=== PATIENT | female | born 1975 | race African-American/Black ===

== ENCOUNTER 2023-11-17 23:46 | Emergency (ER) | payer OTHER ==
[~2023-11-17] VITALS: Ht 175.3 cm; Wt 84.0 kg
[2023-11-18 00:15] VITALS: BP 136/95; RESP 18; TEMP 98.3; O2SAT 99
[2023-11-18 00:17] VITALS: PULSE 98
[2023-11-18 01:58] LABS: *AMPHETAMINES SCREEN URINE NEGATIVE (NEGATIVE); *BARBITURATES SCREEN URINE NEGATIVE (NEGATIVE); *BENZODIAZEPINES SCREEN URINE NEGATIVE (NEGATIVE); *COCAINE SCREEN URINE NEGATIVE (NEGATIVE); CANNABINOID URINE SCREEN PRESUMPTIVE POSITIVE (NEGATIVE); ECSTASY MDMA SCREEN URINE NEGATIVE (NEGATIVE); METHADONE URINE SCREEN Neg (NEGATIVE); OPIATES URINE SCREEN NEGATIVE (NEGATIVE); PHENCYCLIDINE URINE SCREEN NEGATIVE (NEGATIVE)
[2023-11-18] MEDS ORDERED: IBUP-2028 MT ×2 (02:29)
[2023-11-18] MEDS ORDERED: TOPUD MT (02:31)
== END 2023-11-18 03:15 | disposition home or self-care (01) ==
LOC: ER 23:46
DX: J02.9 Acute pharyngitis, unspecified (principal)
CPT/HCPCS: 80305; 87070; 87430; 99283